=== PATIENT | female | born 1950 | race Caucasian/White ===

== ENCOUNTER → 2016-09-12 08:13 | Outpatient (CLI) | payer MEDICARE ==
[2014-09-14 13:25] VITALS: BMI 23.7
[~2016-09-12 08:13] MED LIST: BENTYL10 MG PO; CELEXA40 MG PO; CLONAZEPAM2 MG/TAB PO; HYDROCODON-ACE1 EAC7 PO; LEVOXYL25 MCG PO
[2016-09-12 08:48] LABS: BASOPHILS 0.2 % (0.0-2.0); EOSINOPHILS 1.7 % (0-7); HEMATOCRIT 37.3 % (36.0-48.0); HEMOGLOBIN 11.7 g/dL (12-16); IMMATURE GRANULOCYTES 0.2 % (0-5); MCH 28.6 pg (26.0-34.0); MCHC 31.4 g/dL (31.0-37.0); MCV 91.2 fL (80.0-100.0); MEAN PLATELET VOLUME 9.4 fL (7.4-10.4); MONOCYTES 5.1 % (2-11); NEUTROPHILS 76.8 % (40-80); PLATELET COUNT 209 10x3/uL (130-400); RBC 4.09 10x6/uL (4.00-5.40); RDW 16.3 % (11.5-14.5); WBC 8.3 10x3/uL (4.8-10.8)
[2016-09-12 09:15] LABS: ALBUMIN 3.6 g/dL (3.4-5.0); ALKALINE PHOSPHATASE 49 U/L (46-116); ALT (SGPT) 17 U/L (10-68); BILIRUBIN - TOTAL 0.15 mg/dL (0.2-1.3); CALC OSMOLALITY 278 mosm/kg (275-300); CALCIUM 9.1 mg/dL (8.5-10.1); CARBON DIOXIDE 33.3 mmol/L (21.0-32.0); CHLORIDE - SERUM 103 mmol/L (98-107); CREATININE - SERUM 0.8 mg/dL (0.6-1.3); GLUCOSE 90 mg/dL (74-106); PROTEIN - SERUM 7.1 g/dL (6.4-8.2); SODIUM 140 mmol/L (136-145); UREA NITROGEN 13 mg/dL (7-18); eGFR NON AFRICAN AMERICAN 76 mL/min (90-120)
[2016-09-12 09:52] LABS: ERYTHROCYTE SEDIMENTATION RATE 16 mm/hr (0-30)
[2016-09-13 07:25] LABS: RAPID PLASMA REAGIN Non Reactive (Non Reactive)
--- NOTE | 2016-09-26 08:17 | EC ---
PATIENT:ASHLEY EUBANKS DATE OF SERVICE: 09/12/16 SEX: F MEDICAL RECORD: [id number] DATE OF : [birth year] LOCATION:[facility] AGE OF PATIENT: 66 ADMISSION DATE: 09/12/16 REFERRING PHYSICIAN: INTERPRETING PHYSICIAN: LUIS QUIROGA M.D. ECHOCARDIOGRAM REPORT ECHO CHARGES 4 ECHO COMPLETE CLINICAL DIAGNOSIS: VISUAL DISTURBANCE/ ASSESS FOR CLOTS ECHOCARDIOGRAPHIC MEASUREMENTS (adult normal given) AC root (d.<3.7cm) 3.6 LV Septum d (<1.2 cm> 1.5 Valve Excursion 1.7 LV Septum (systole) 1.6 Left Atria (s.<4.0cm> 2.7 LVPW d(<1.2cm) 1.4 RV (d.<2.3cm) 2.8 LVPW (sytole) 1.5 LV diastole(<5.6CM) 4.2 MV E-F(>70mm/sec) LV systole 2.7 LVOT Diameter 1.6 MV exc.(>10mm) 1.4 Est.ejection fraction (50-75%) Pericardial Effusion N DOPPLER: LVIT A 114 E 98.0 LA RVSP 27 LVOT 114 AOP1/2T Asc. Ao 179 RVOT 77 RA PA 145 AV Gradient Peak 12.86 AV Mean 6.92 AV Area 1.3 MV Gradient Peak 6.10 MV Mean 2.03 MV Area COMMENTS: Cement Paver: Dk [facility] Specialist:2 Dr. Quiroga TAPE# PACS DATE OF SERVICE: 09/12/2016 REFERRING PHYSICIAN: Leonidas Pineda MD INDICATION: Visual disturbance, TIA. DESCRIPTION: Left ventricle demonstrates left ventricular hypertrophy. No wall motion abnormalities are noted. Estimated ejection fraction is 60%. There is no evidence of any mass or thrombus in the left ventricle apex. Mitral valve appears structurally normal. There is no regurgitation or prolapse seen. Left ECHOCARDIOGRAM REPORT [id number] ASHLEY EUBANKS atrium is normal in size. The aortic valve is trileaflet. There is no stenosis or regurgitation seen. Right ventricle is mildly dilated. Tricuspid valve is normal. There is mild regurgitation noted. Right atrium is normal size. There is no pericardial effusion seen. IMPRESSION: 1. Left ventricular hypertrophy with preserved ejection fraction of 60%. 2. Mild tricuspid regurgitation. 3. No evidence of any mass or thrombus in the left ventricle apex. 4. No evidence of atrial septal defect, ventricular septal defect or patent foramen ovale. TRANSINT:[id number] Voice Confirmation ID: [id number] DOCUMENT ID: [id number] LUIS QUIROGA M.D. at 0817 CC: [id number] DICTATION DATE: 09/13/16 0807 PLUSH FINISHER: 09/13/16 2330 [facility] CLI 09/12/16 [place] [id number]
== END | disposition home or self-care (01) ==
LOC: D.ECHO 08:13
PROVIDERS: Psychiatry & Neurology Neurology
DX: H53.8 Other visual disturbances (principal); F33.1 Major depressive disorder, recurrent, moderate; F41.1 Generalized anxiety disorder

== ENCOUNTER → 2016-09-25 12:17 | Outpatient (CLI) | payer MEDICARE ==
[2014-09-14 13:25] VITALS: BMI 23.7
--- NOTE | 2016-09-27 08:21 | EEG ---
PATIENT:ASHELY EUBANKS DATE OF SERVICE: 09/25/16 MEDICAL RECORD: [id number] DATE OF : 52 LOCATION: [facility] ADMISSION DATE: 09/25/16 REFERRING PHYSICIAN: INTERPRETING PHYSICIAN: QUINCY SCANLON MD DATE OF SERVICE: 09/25/2016 Electroencephalographic Report Referred as an outpatient by myself. ELECTROENCEPHALOGRAM NUMBER: [id number]. DATE OF EXAMINATION: 09/25/2016 at 1:00 p.m. TECHNICAL DATA: This electroencephalographic recording consists of approximately 20 minutes of data collection utilizing the international 10/20 system of electrode placement and both referential and non-referential montages. Sixteen channels of electrocerebral recording are accompanied by a 17th channel dedicated to the electrocardiographic rhythm and 2 channels of electromyographic recording. Recording is performed entirely in the waking state utilizing activation by hyperventilation and photic stimulation. ELECTROENCEPHALOGRAPHIC DATA: The entirety of the recorded electrocerebral activity is performed in the waking state. Electromyographic artifact is prominent and rapid eye movements are seen. The posterior dominant background consists of a symmetric, semi-rhythmic, waxing and waning 6-7 Hz theta activity, which is suppressed by eye opening. No focal slowing is identified. No epileptiform discharges are seen. Photic stimulation and hyperventilation induced no abnormal change in the recorded electrocerebral activity. INTERPRETATION: Background slow (awake). This electroencephalographic recording is indicative of a mild diffuse encephalopathy. TRANSINT:[id number] Voice Confirmation ID: [id number] DOCUMENT ID: [id number] QUINCY SCANLON MD at 0821 CC: [id number] DICTATION DATE: 09/26/16 0804 ADMINISTRATIVE SERVICES COORDINATOR: 09/26/16 1135 [facility] CLI 09/25/16 [place] [id number] [place] [address]
== END | disposition home or self-care (01) ==
LOC: D.CN 09-20 13:00
DX: H53.8 Other visual disturbances (principal); F33.1 Major depressive disorder, recurrent, moderate; F41.1 Generalized anxiety disorder

== ENCOUNTER → 2016-12-20 15:05 | Outpatient (CLI) | payer MEDICARE ==
[2014-09-14 13:25] VITALS: BMI 23.7
== END | disposition home or self-care (01) ==
LOC: D.LAB 12-06 08:15
PROVIDERS: Psychiatry & Neurology Neurology
DX: F33.1 Major depressive disorder, recurrent, moderate (principal); H53.8 Other visual disturbances; F41.1 Generalized anxiety disorder